=== PATIENT | female | born 1985 | race Caucasian/White ===

== ENCOUNTER 2017-02-11 13:14 | Observation (INO) | payer OTHER ==
[~2017-02-11] VITALS: Ht 160 cm; Wt 54.5 kg
[2017-02-11 14:38] VITALS: BP 148/99; PULSE 77; TEMP 98.1
[2017-02-11] MEDS ORDERED: LIBRIUM 25M25 MG/CAP PO (15:12)
[2017-02-11] MEDS ORDERED: WOMEN'S DAILY1 TAB PO (15:13)
[2017-02-11] MEDS ORDERED: PROBIOTIC ACID1 EAC3 PO (15:16)
[2017-02-11] MEDS ORDERED: ADDERALL XR20 MG PO (15:17)
[2017-02-11] MEDS ORDERED: ADDERALL20 MG PO (15:18)
[2017-02-11] MEDS ORDERED: ORTHO TRI-CYCLE1 TAB PO (15:20)
[2017-02-11] MEDS ORDERED: MAG-OX 400400 MG/TAB PO (15:46)
[2017-02-11 16:30] VITALS: BP 130/99; PULSE 76; TEMP 97.8
[2017-02-11 17:51] VITALS: BP 141/99; PULSE 80; TEMP 98.1
[2017-02-11 20:05] VITALS: BP 129/91; PULSE 75; TEMP 98
[2017-02-11 22:27] VITALS: BP 120/81; PULSE 67; TEMP 97.5
[2017-02-12 01:50] VITALS: BP 109/75; PULSE 75; TEMP 97.6
[2017-02-12 06:02] VITALS: BP 134/85; PULSE 65; TEMP 97.7
[2017-02-12 07:09] LABS: MEAN CELL VOLUME 104 fl (80.0-100.0); MEAN CORPUSCULAR HGB CONC 34 g/dl (33.0-37.0); MEAN PLATELET VOLUME 11.7 fl (7.4-10.4); PLATELET COUNT 69 K/mm3 (130-400); RED BLOOD COUNT 3.31 M/mm3 (4.10-5.30); REDCELL DISTRIBUTION WIDTH-CV 12.1 % (11.5-14.5)
[2017-02-12 07:15] LABS: HEMATOCRIT 34.4 % (37.0-47.0); HEMOGLOBIN 11.6 g/dl (12.5-16.0); MEAN CORPUSCULAR HEMOGLOBIN 35 pg (27.0-31.0); WHITE BLOOD COUNT 1.7 K/mm3 (4.8-10.8)
[2017-02-12 07:23] LABS: ADJUSTED CALCIUM 8.7 mg/dL (8.4-10.2); ALANINE AMINOTRANSFERASE 60 U/L (9-52); ALBUMIN 3.6 gm/dL (3.5-5.0); ALKALINE PHOSPHATASE 65 U/L (50-136); ANION GAP 14 mmol/L (7-16); BILIRUBIN,TOTAL 1.2 mg/dL (0.0-1.0); CALCIUM 8.4 mg/dL (8.4-10.2); CARBON DIOXIDE 24 mmol/L (22-30); CHLORIDE 98 mmol/L (98-107); GLUCOSE 54 mg/dL (74-106); LIPASE 274 U/L (23-300); POTASSIUM 3.5 mmol/L (3.4-5.0); SODIUM 136 mmol/L (137-145); TOTAL PROTEIN 6.2 gm/dL (6.4-8.2)
[2017-02-12 07:30] LABS: BLOOD UREA NITROGEN < 2 mg/dL (7-17)
[2017-02-12 07:52] VITALS: BP 152/103; PULSE 99; TEMP 98.5
[2017-02-12] MEDS ORDERED: LIBRIUM 25M25 MG/CAP PO (08:46)
[2017-02-12] MEDS ORDERED: NATURE'S BLEND100 M2 PO (08:47)
[2017-02-12] MEDS ORDERED: FOLIC ACID 11 MG/TA1 PO (08:47)
[2017-02-12] MEDS ORDERED: ZOFRAN 4MG T4 MG/TAB PO (08:48)
== END 2017-02-12 10:10 | disposition home or self-care (01) ==
LOC: SURG 13:14
PROVIDERS: Family Medicine
DX: R10.11 Right upper quadrant pain (principal); F90.9 Attention-deficit hyperactivity disorder, unspecified type; R11.0 Nausea; F10.10 Alcohol abuse, uncomplicated; D72.819 Decreased white blood cell count, unspecified; R74.0 Nonspecific elevation of levels of transaminase and lactic acid dehydrogenase [LDH]; D69.6 Thrombocytopenia, unspecified
CPT/HCPCS: G0378; G0379; J7030